=== PATIENT | male | born 1970 | race Caucasian/White ===

== ENCOUNTER → 2016-10-07 | Outpatient (CLI) | payer MEDICARE, MEDICAID ==
[~2016-10-07] MED LIST: ASPIR 8181 MG PO; AUGMENTIN1 TA2 PO; CARVEDILOL12.5 MG PO; CARVEDILOL6.25 MG PO; CELEXA20 M1 PO; CITALOPRAM20 MG PO; CLONAZEPAM 1MG T1 MG PO; CLOPIDOGREL75 M2 PO; FLEXERIL10 MG PO; GABAPENTIN800 MG PO; HYDROCODONE-APA1 TA1 PO; HYDROCODONE1 TABLET PO; IBU-8800 MG PO; IBU800 MG PO; KEFLEX 500MG.500 MG PO; LISINOPRIL 20MG20 MG PO; LORTAB 5/500 501 TAB PO; MEDROL 4MG. DOSE4 MG PO; NAPROSYN 500MG500 MG PO; NICODERM C21 MG/24 H TD; NORCO 325 MG-51 TAB PO; PERCOCET 5/3251 EACH PO; PRAVACHOL 40MG40 MG PO; PRILOSEC OTC20 MG PO; ULTRAM50 MG PO; VICODIN 5/500 T1 TAB PO; XANAX 1MG TABLET1 MG PO
[2016-10-07 12:16] LABS: HEMOGLOBIN 16.6 g/dL (14.1-18.0); LYMPH # 3.5 K/mm3 (0.7-4.5); LYMPH % 37.7 % (10-50)
[2016-10-07 13:33] LABS: BILIRUBIN, INDIRECT 0.14 mg/dL (0-0.9); BUN 15 mg/dL (7-18)
[2016-10-07 13:48] LABS: GFR (ESTIMATED) 90 ML/MIN (>60)
== END ==
LOC: LAB 11:40
PROVIDERS: Internal Medicine Cardiovascular Disease
DX: I47.2 Ventricular tachycardia (principal); I42.9 Cardiomyopathy, unspecified; I10 Essential (primary) hypertension; E78.5 Hyperlipidemia, unspecified; R00.2 Palpitations; R07.9 Chest pain, unspecified; R53.83 Other fatigue